=== PATIENT | male | born 1960 | race Caucasian/White ===

== ENCOUNTER 2016-10-27 18:44 | Emergency (ER) | payer BC ==
[~2016-10-27 18:44] MED LIST: ALLERGY INJECTIONS; GLUCOSAMINEPO; LEVOTHYROXIN50 MCG PO; PROTONIX PO
== END 2016-10-27 19:45 | disposition home or self-care (01) ==
LOC: ER 18:44
PROC: 0HQ1XZZ Repair Face Skin, External Approach (ICD-10-PCS; principal; 2016-10-27)
DX: S01.81XA Laceration without foreign body of other part of head, initial encounter (principal); H53.2 Diplopia; I10 Essential (primary) hypertension; Z88.2 Allergy status to sulfonamides; Z88.8 Allergy status to other drugs, medicaments and biological substances; W22.8XXA Striking against or struck by other objects, initial encounter
CPT/HCPCS: 70450; 99283